=== PATIENT | female | born 1990 | race Caucasian/White ===

== ENCOUNTER 2016-08-29 20:24 | Emergency (ER) | payer OTHER ==
[~2016-08-29] VITALS: Ht 170.2 cm; Wt 81.6 kg
[2016-08-29 20:32] VITALS: TEMP 37.1; Ht 170.2 cm; Wt 81.6 kg
[2016-08-29 21:51] LABS: BUN/CREATININE RATIO 8.2 (10-20); CALCIUM 9.4 mg/dl (8.5-10.1); CREATININE 0.62 mg/dl (0.60-1.20); POTASSIUM 3.6 mmol/L (3.5-5.1)
[2016-08-29 22:02] LABS: THYROID STIMULATING HORMONE 0.336 uIu/ml (0.300-4.500)
[2016-08-29 22:04] LABS: URINE APPEARANCE CLOUDY (CLEAR); URINE BILIRUBIN NEG (NEG); URINE COLOR YELLOW; URINE EPITHELIAL CELL AUTO >30 /lpf (0-5); URINE NITRITE POS (NEG); URINE SPECIFIC GRAVITY 1.018 (1.000-1.030); UROBILINOGEN NEG (NEG)
[2016-08-29 22:05] LABS: MANUAL MICROSCOPIC REQUIRED? NO; REVIEW REQ? NO
[2016-08-29] MEDS ORDERED: SULFAMETHOXAZOLE/TRIMETHOPRIM DS 800/160MG TAB PO STA (22:21)
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
[2016-08-29 22:46] LABS: BASO % 0.2 %; BASO ABS # 0.03 K/uL (0-0.2); COMPLETE YES; EOS % 0.1 %; HEMATOCRIT 47.8 % (37-47); IG% 0.4 %; LYMPH ABS # 1.49 K/uL (1.2-3.4); MEAN CELL VOLUME 85.7 fL (80-100); MEAN CORPUSCULAR HEMOGLOBIN 29.2 pg (25-34); MEAN CORPUSCULAR HGB CONC 34.1 g/dl (32-36); MEAN PLATELET VOLUME 10.3 fL (7.4-10.4); MONO % 4.5 %; NEUT % 83.8 %; PLATELET COUNT 356 K/uL (130-400); RED BLOOD COUNT 5.58 M/uL (4.2-5.4)
[2016-08-29 22:46] LABS: BENZODIAZEPINE, URINE NEG (NEG); COCAINE,URINE NEG (NEG); PHENCYCLIDINE, URINE NEG (NEG)
[2016-08-29] MEDS ORDERED: HALOPERIDOL LACTATE 5 MG/ML 1 ML VIAL IM STA (23:45)
[2016-08-29] MEDS ORDERED: BENZTROPINE MESYLATE 1 MG/ML 2 ML AMP IM STA (23:45)
[2016-08-29] MEDS ORDERED: LORAZEPAM 2 MG/ML 1 ML VIAL IM STA (23:45)
[2016-08-30] MEDS ORDERED: SULFAMETHOXAZOLE/TRIMETHOPRIM DS 800/160MG TAB PO ONE (02:51)
--- NOTE | 2016-08-30 06:51 | EMERGENCY ROOM VISIT NOTE ---
ED Visit Note First contact with patient: 02:59 This case was signed out to me at change of shift awaiting transfer to the [facility]. The patient is sleeping at this time. 0630: The case was signed out to Dr. Valdes. The patient will go to the [facility] at 10:30 AM this morning. She has no morning medications that need ordered.
--- NOTE | 2016-08-30 10:27 | EMERGENCY ROOM VISIT NOTE ---
ED Visit Note 25-year-old female was signed off to me at change of shift from Dr. Gutierrez. The patient was awaiting transfer to the [facility]. [facility] did accept the patient. I reevaluated the patient briefly at 1022. She is reluctantly going to the [facility]. Transfer paperwork was signed.
[2016-08-30 10:52] VITALS: BP 109/56; PULSE 77; O2SAT 95
== END 2016-08-30 10:50 ==
LOC: C.EDB 20:25 → C.EDA 08-30 10:50
DX: F39 Unspecified mood [affective] disorder (principal); R45.851 Suicidal ideations; F41.9 Anxiety disorder, unspecified; F12.10 Cannabis abuse, uncomplicated